=== PATIENT | female | born 1935 | race Hispanic/Latino ===

== ENCOUNTER 2018-03-06 05:35 | Day surgery (SDC) | payer MEDICARE ==
[~2018-03-06] VITALS: Ht 165.1 cm; Wt 56.8 kg
[~2018-03-06 05:35] MED LIST: ALPR0.255 PO; AMYL1CAP63 PO; CHOL100040 PO; CYAN500 PO; DHA PO; DILT120C57 PO; FOLIC ACID PO; IRON PO; L.AC1CAP6 PO; MULT1CAP32 PO; OMEP20CA10 PO; PROG100C6 PO; RIVA20TA PO; VITA1CAP85 PO
[2018-03-06] MEDS ORDERED: SODIUM CHLORIDE 0.9% 1000ML 1,000 ML IV ONE (05:38)
[2018-03-06 05:54] VITALS: BP 135/66
[2018-03-06] MEDS ORDERED: GLYCOPYRROLATE 0.2 MG/ML 5 ML VIAL ONE (06:36)
[2018-03-06] MEDS ORDERED: PROPOFOL 10 MG/ML 20ML VIAL IV ONE (06:36)
[2018-03-06] MEDS ORDERED: PHENYLEPHRINE HCL 10 MG/ML 1ML VIAL IV ONE (06:46)
[2018-03-06 07:06] VITALS: BP 89/42
[2018-03-06 07:11] VITALS: BP 93/44
[2018-03-06 07:16] VITALS: BP 101/47
[2018-03-06 07:21] VITALS: BP 105/52
== END 2018-03-06 07:40 | disposition home or self-care (01) ==
LOC: ENDO 05:35 → DAH 05:35 → ENDO 07:40
PROVIDERS: ATTEND Internal Medicine Gastroenterology
DX: K31.89 Other diseases of stomach and duodenum (principal); K57.30 Diverticulosis of large intestine without perforation or abscess without bleeding; I10 Essential (primary) hypertension; F41.9 Anxiety disorder, unspecified; E78.5 Hyperlipidemia, unspecified; M81.0 Age-related osteoporosis without current pathological fracture; K58.9 Irritable bowel syndrome, unspecified; M19.90 Unspecified osteoarthritis, unspecified site; Z90.710 Acquired absence of both cervix and uterus; Z90.49 Acquired absence of other specified parts of digestive tract
CPT/HCPCS: 43239; 45380; 88305; 93005; A4606; J2370; J2704; J3490; J7030

== ENCOUNTER → 2018-09-24 | Outpatient (CLI) | payer MEDICARE ==
[~2018-09-24] MED LIST changes: +DILT-3 PO; -DILT120C57 PO
== END | disposition home or self-care (01) ==
LOC: RAH 13:57
PROVIDERS: ATTEND Family Medicine
DX: I70.90 Unspecified atherosclerosis (principal); R31.9 Hematuria, unspecified
CPT/HCPCS: 76770; 93925

== ENCOUNTER → 2018-11-23 | Outpatient (CLI) | payer MEDICARE ==
[~2018-11-23] MED LIST changes: -CYAN500 PO; +CYAN500T4 PO; +OMEP-50 PO; -OMEP20CA10 PO; +PROG100C11 PO; -PROG100C6 PO
== END | disposition home or self-care (01) ==
LOC: SHCH 11:06
PROVIDERS: ATTEND Internal Medicine Cardiovascular Disease
DX: R60.9 Edema, unspecified (principal)
CPT/HCPCS: 93922

== ENCOUNTER 2020-04-28 11:17 | Emergency (ER) | payer MEDICARE ==
[~2020-04-28 11:17] MED LIST changes: -CYAN500T4 PO; +CYAN500T65 PO; -DILT-3 PO; +DILT120C95 PO; -OMEP-50 PO; +OMEP20CA12 PO
== END 2020-04-28 15:50 | disposition home or self-care (01) ==
LOC: EDH 11:17
DX: M48.061 Spinal stenosis, lumbar region without neurogenic claudication (principal); M54.30 Sciatica, unspecified side; I10 Essential (primary) hypertension; I48.91 Unspecified atrial fibrillation; Z88.6 Allergy status to analgesic agent; Z88.2 Allergy status to sulfonamides
CPT/HCPCS: 72148; 93005

== ENCOUNTER → 2022-08-07 | Outpatient (CLI) | payer OTHER ==
[~2022-08-07] MED LIST changes: -ALPR0.255 PO; -AMYL1CAP63 PO; +ATOR10 PO; -CHOL100040 PO; -CYAN500T65 PO; -DHA PO; -DILT120C95 PO; -FOLIC ACID PO; +FURO-152 PO; +GABA-529 PO; +HYOS-14 PO; -IRON PO; -L.AC1CAP6 PO; +LACT1CAP78 PO; +LATA7.5D OP; +LINA72CA PO; +LOPE2CAP PO; +MAGN100T5 PO; +MELO5CAP3 PO; +METO-408 PO; +MULT-1250 PO; -MULT1CAP32 PO; -OMEP20CA12 PO; +ONDA4TAB10 PO; -PROG100C11 PO
[2022-08-07 16:19] LABS: BASOPHILS % (AUTO) 0.7 % (0.0-5.0); EOSINOPHILS % (AUTO) 4.8 % (0.0-8.0); HEMATOCRIT 38.3 % (36-48); MEAN CORPUSCULAR HEMOGLOBIN 33.2 pg (27.0-33.0); MEAN CORPUSCULAR HGB CONC 32.4 g/dL (32.0-36.0); MEAN CORPUSCULAR VOLUME 102.7 fL (79-99); MONOCYTES % (AUTO) 8.4 % (3.0-13.0); NEUTROPHILS % (AUTO) 42.8 % (40.0-77.0); PLATELET COUNT (AUTO) 190 K/uL (130-400); RED BLOOD CELL COUNT(AUTO) 3.73 MIL/uL (4.00-5.50); RED CELL DISTRIBUTION WIDTH 11.9 % (11.0-15.5); WHITE BLOOD COUNT (AUTO) 7.5 K/uL (4.8-10.8)
[2022-08-07 16:43] LABS: ALBUMIN 4.3 g/dL (3.5-5.0); CREATININE 1.2 mg/dL (0.5-1.5); POTASSIUM 4.1 mmol/L (3.5-5.1); TOTAL PROTEIN, SERUM 7.9 g/dL (6.0-8.3)
== END | disposition home or self-care (01) ==
LOC: LAB 13:17
PROVIDERS: ATTEND Internal Medicine Cardiovascular Disease
DX: I48.0 Paroxysmal atrial fibrillation (principal); R19.7 Diarrhea, unspecified; D68.9 Coagulation defect, unspecified; I50.32 Chronic diastolic (congestive) heart failure
CPT/HCPCS: 36415; 80053; 85025

== ENCOUNTER → 2022-08-29 | Outpatient (CLI) | payer OTHER | END | disposition home or self-care (01) | LOC: RAH 07:48 | PROVIDERS: ATTEND Internal Medicine Cardiovascular Disease | DX: K83.8 Other specified diseases of biliary tract (principal); R94.5 Abnormal results of liver function studies; Z90.49 Acquired absence of other specified parts of digestive tract | CPT/HCPCS: 76705 ==

== ENCOUNTER → 2022-09-05 | Outpatient (CLI) | payer OTHER | END | disposition home or self-care (01) | LOC: RAH 14:34 | PROVIDERS: ATTEND Internal Medicine Cardiovascular Disease | DX: R42 Dizziness and giddiness (principal); R53.83 Other fatigue | CPT/HCPCS: 93306 ==

== ENCOUNTER → 2023-03-31 | Outpatient (CLI) | payer OTHER ==
[2023-03-31 12:11] LABS: ALBUMIN 3.9 g/dL (3.5-5.0); BILIRUBIN,TOTAL 0.9 mg/dL (0.2-1.0); CREATININE 1.1 mg/dL (0.5-1.5); POTASSIUM 4.2 mmol/L (3.5-5.1); TOTAL PROTEIN, SERUM 7.4 g/dL (6.0-8.3)
== END | disposition home or self-care (01) ==
LOC: LAB 10:31
PROVIDERS: ATTEND Internal Medicine Cardiovascular Disease
DX: I50.32 Chronic diastolic (congestive) heart failure (principal); D68.59 Other primary thrombophilia; I48.21 Permanent atrial fibrillation; J84.10 Pulmonary fibrosis, unspecified
CPT/HCPCS: 36415; 80053; 80061; 83880